=== PATIENT | female | born 1990 | race Caucasian/White ===

== ENCOUNTER 2017-03-24 21:09 | Emergency (ER) | payer MEDICAID, OTHER ==
[2017-03-24 22:39] LABS: Hematocrit 42.3 % (37.0-47.0); Hemoglobin 13.9 gm/dL (12.5-16.0); Mean Cell Volume 87.2 fl (78-100); Mean Corpuscular Hemoglobin 28.7 pg (27-31); Mean Corpuscular Hgb Conc 32.9 g/dl (32-36); Platelet Count 361 K/mm3 (150-450); Red Blood Count 4.85 M/mm3 (4.2-5.4); Red Cell Distribution Width 13.3 % (11.5-14.0); White Blood Count 11.3 K/mm3 (4.0-10.5)
[2017-03-24 22:49] LABS: Total Cells Counted 100
[2017-03-24 22:52] LABS: Urine Bilirubin Negative (NEGATIVE); Urine Blood Negative /ul (NEGATIVE); Urine Ketone Large mg/dL (NEGATIVE); Urine Nitrite Negative (NEGATIVE); Urine Protein Negative (NEGATIVE); Urine Specific Gravity 1.025 SP.GR. (1.005-1.010); Urine Urobilinogen Normal (NORMAL); Urine pH 5.5 pH (5.0-7.0)
[2017-03-24 22:58] LABS: Albumin * 3.8 gm/dl (3.4-5.0); Anion Gap 24.7 mmol/L (6.8-13.8); Ca. Corrected For Albumin 8.7 mg/dL (8.4-10.2); Calcium * 8.9 mg/dL (7.9-10.9); Carbon Dioxide 16.6 mmol/L (24-32.6); Potassium 4.3 mmol/L (3.4-4.6); Total Protein 7.5 gm/dL (6.2-8.2)
[2017-03-24 23:04] LABS: Lymphocyte 27 % (20-51); Monocyte 6 % (0-9); Neutrophil 67 % (42-75); Neutrophil # 7.6 K/mm3 (1.3-6.0)
[2017-03-24 23:05] LABS: Microcytosis 1+; Platelet Estimate Normal (NORMAL)
[2017-03-24 23:22] LABS: Urine Appearance Clear; Urine Color Pale Yellow; Urine RBC None Seen /hpf (0-5); Urine WBC None Seen /hpf (0-5)
[2017-03-24 23:23] LABS: Urine Bacteria TRACE; Urine Yeast TRACE
--- NOTE | 2017-03-24 23:24 | ERNOTE ---
Abdominal HPI - Narrative Date of Service: 03/24/17 - General Chief Complaint: Abdominal Pain Time Seen by Provider: 03/24/17 23:21 Source: patient Exam Limitations: no limitations - Immun/Allergies/Home Medications Immunizatons: IMMUNIZATION HX Immunizations Up to Date Yes History of Influenza Vaccine Yes Hx Pneumococcal Vaccination No Allergies/Adverse Reactions: Allergies amoxicillin trihydrate [From Augmentin] Allergy (Verified 03/20/16 16:58) Hives Penicillins Allergy (Verified 03/20/16 16:58) Hives potassium clavula *RETIRED-06/08/13 [From Augmentin] Allergy (Verified 03/20/16 16:58) Hives Home Medications: HOME MEDICATIONS Insulin Pump Cartridge [T:Flex] 1 each SQ DAILY 03/24/17 [Last Taken Unknown] Lisinopril [Zestril] 5 mg PO DAILY 03/24/17 [Last Taken Unknown] - History of Present Illness Narrative: HERE FOR C/O OF ABD DISCOMFORT DOWN INTO RIGHT GROIN. NO PERIOD. ON ROQUE. STARTED EARLIER TODAY. SOME NAUSEA , NO VOMITING, DIARRHEA X 3 = WATERY. NO FEVER. HER BGMS HAVE BEEN JUMPING AROUND. SHE HAS HAD DECREASED APPETITE. SHE HAS INSULIN PUMP AND USES SLIDING SCALE HER PUMP IS CURRENTLY ON A BASAL RATE. 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 NO SUSPICIOUS FOODS LATELY. SHE ALSO GIVES AN ADDITIONAL COMPLAINT OF MID STERANL CHEST PAIN WORSE WITH PALPATION. Review of Systems - Review of Systems Constitutional: Present: See HPI, recent illness EYE: Present: no symptoms reported ENT: Present: no symptoms reported Respiratory: Present: no symptoms reported Cardiology: Present: See HPI, chest pain Gastrointestinal/Abdominal: Present: nausea, diarrhea, abdominal pain Genitourinary: Present: no symptoms reported Musculoskeletal: Present: no symptoms reported Skin: Present: no symptoms reported Neurological: Present: no symptoms reported Endocrine: Present: See HPI Hematologic/Lymphatic: Present: no symptoms reported Psych: Present: no symptoms reported - Patient's Past Medical History Patient History - Medical: Diabetes Type 1 Patient History - Cardiac/Respiratory: No pertinent hx Patient History - Cancer: No Hx of Cancer Patient History - Surgical Procedures: , Other Patient History - Other: None - Family History Father Family History - Medical: Diabetes Type 1 - Social History Living Situations: home Abuse History: No History of abuse Psych History: No pertinent hx Smoking Status: Never smoker Alcohol Use: none Drug Use: none - Immunizations Immunizations Up to Date: Yes Hx Pneumococcal Vaccination: No History of Influenza Vaccine: Yes Physical Exam - Physical Exam General Appearance: Present: wd/wn, alert, no apparent distress Respiratory: Present: no respiratory distress, normal breath sounds, no accessory muscle use, lungs clear, chest tenderness - SHE HAS MID STERNAL CHEST DISCOMFORT WITH MINIMAL PRESSURE. Cardiovascular/Chest: Present: regular rate, rhythm, no murmur, normal peripheral pulses Peripheral Pulses: N=norm/S=strong/W=weak/B=bound/A=absent: Dorsalis-pedis (R): Normal, Dorsalis-pedis (L): Normal Gastrointestinal/Abdominal: Present: normal bowel sounds, nondistended - OBESE , soft, no organomegaly, tenderness - MILD RIGHT GROIN /RLQ TENDERNESS WITH NO GUARDING OR REBOUND. Back Exam: Present: normal inspection, normal range of motion, no CVA tenderness , no vertebral tenderness Extremity Exam: Present: normal inspection Neurological Exam: Present: alert, oriented Skin Exam: Present: normal color, warm/dry ED Progress - Results and Orders Patient's Lab Results:: I have reviewed the patient's lab results. Results and Orders: WBC = 11.3 AND GLUC = 424 WITH NL LYTES AND BUN/CREAT. LFT'S = NL. UA = NL EXCEPT FOR 4+ GLUC. - Vital Signs Patient's Vital Signs:: I have reviewed the patient's vital signs. Vital Signs: Vital Signs 03/24/17 03/24/17 03/24/17 21:15 21:52 22:23 Temperature 37.2 C 36.9 C Pulse Rate 102 H 100 98 Respiratory 16 16 14 Rate Blood Pressure 136/79 134/82 132/76 O2 Sat by Pulse 97 99 97 Oximetry 03/24/17 22:47 Temperature 36.9 C Pulse Rate 101 H Respiratory 16 Rate Blood Pressure 132/74 O2 Sat by Pulse 100 Oximetry - X-Ray X-Ray #1 X-Ray: abdomen Interpretation: Interp. by ut - WNL - CT/Ultrasound CT/Ultrasound Narrative: CT ABD /PELVIS = NO ABNORMALITY NOTED. - Progress/Reassessment Chief Complaint: Abdominal Pain Departure - Departure Clinical Impression: Right groin pain, Hyperglycemia Disposition: Home Follow Up Needed Condition: Good Instructions: Diarrhea, Adult, [id number] Additional Instructions: CLEAR LIQUID DIET FOR 1-2 DAYS UNTIL NO MORE DIARRHEA AND THEN GRADUALLY RESUME REGULAR FOOD LEAVING FATTY FOODS AND MILK PRODUCTS LAST TO ADD BACK. TYLENOL OR IBUPROFEN FOR RIGHT GROIN /ABDOMEN PAINS. RECHECK WITH YOUR FAMILY DOCTOR OR RETURN IF WORSE OR NOT IMPROVING OVER THE NEXT 2-[address] SCAN WAS NORMAL. WATCH YOUR BLOOD GLUCOSE CLOSELY AND USE YOUR SLIDING SCALE WHEN THEY ARE ELEVATED.
[2017-03-24] MEDS ORDERED: INSULIN REGULAR, HUMAN 100 UNITS/ML VIAL SC ONE (23:32)
--- OUTSIDE RECORDS SUMMARY | 2017-03-24 23:42 | XMS REPORT | Continuity of Care Document ---
:1990 Author Organization [employer] [place] [address] Care Team Providers Name Role Phone Ananth Iyer Primary Care Provider [phone] Source Comments This disclosure is being made pursuant to the [employer] program and maynot contain all information available regarding this patient.[employer] Active Allergies and Adverse Reactions Allergen Noted Date Severity Reactions Comments Amoxicillin-Pot 09/01/2014 High Hives Clavulanate Metoclopramide Hcl 02/25/2017 High Shortness Of Breath Legs tingling & twitching Penicillins 09/01/2014 High Hives Current Medications Be aware that medications may not be up to date as of this document. Alwaysverify current medications with the patient. Prescription Sig. Disp. Refills Start Date End Date Status Glucose Blood DX 250.03 One 300 each 3 10/25/2014 Active (BLOOD GLUCOSE Touch Verio IQ TEST STRIPS) STRP testing 4-7 times per day Insulin Use to administer 200 each 6 10/25/2014 Active Syringe-Needle insulin 4-6 times U-100 (INSULIN a day. SYRINGE .5CC/30GX5/16") 30G X 5/16" 0.5 ML MISC insulin glargine Inject 26 Units Active (LANTUS) 100 into the skin UNIT/ML injection daily. While off - vial her pump glucagon HCl, Inject 1 mg into 1 kit 1 10/02/2016 Active rDNA, (GLUCAGEN) 1 the skin daily as MG injection needed. for symptomatic hypoglycemia. May repeat x 1 after 20 min if needed. insulin lispro Per insulin pump 30 mL 5 10/02/2016 Active (HUMALOG) 100 uses tdd of 70 UNIT/ML injection units per day dx - vial e10.65 acetone, urine, As directed prn 25 each 6 10/02/2016 Active test (KETOSTIX) strip lisinopril Take 1 tablet by 30 tablet 5 02/25/2017 Active (PRINIVIL,ZESTRIL) mouth daily. 5 MG tablet lisinopril Take 1 tablet by 30 tablet 5 10/03/2016 Discontinued (PRINIVIL,ZESTRIL) mouth daily. 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, with 02/25/2017 long-term current use of insulin (HCC) Type I diabetes mellitus, uncontrolled ([facility]) 03/16/2008 Overview: Overview: MENG CHAVEZ MD Type I diabetes mellitus (HCC) 03/06/2005 Overview: Overview: MENG CHAVEZ MD Overview: MENG CHAVEZ MD Resolved Problems Problem Noted Date Resolved Date Swelling, mass, or lump in head and neck 03/09/2009 12/01/2015 Overview: Overview: M MISCELLANEOUS Cellulitis and abscess of leg 07/10/2007 12/01/2015 Overview: Overview: THEODORE COBOS DO Most Recent Encounters Date Type Specialty Providers Description 03/12/2017 Orders Only Endocrinology Maeve Samriento MD Uncontrolled type 1 diabetes mellitus without complication (HCC); Type 1 diabetes mellitus without complication (HCC) 02/25/2017 Office Visit Endocrinology Maeve Sarmiento MD 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, with long-term current use of insulin (HCC) (Primary Dx) 02/20/2017 Abstract Endocrinology Amara Burrell LPN Immunizations Name Dates Previously Given Next Due INFLUENZA, INACTIVATED, QUADRIVALENT, 3 YEARS AND 10/02/2016,09/01/2015 older, single dose syringe/vial Influenza Split 09/01/2014 Pneumococcal Polysaccharide-23 12/01/2015 Social History Tobacco Use Types Packs/Day Years Used Date Never Smoker Smokeless Tobacco: Never Used Tobacco Cessation:Counseling Given: No Comments: Alcohol Use Drinks/Week oz/Week Comments No Last Filed Vital Signs Vital Sign Reading Time Taken Blood Pressure 128/83 02/25/2017 10:19 AM CDT Pulse 95 02/25/2017 10:19 AM CDT Temperature 36.9 C (98.5 F) 03/22/2009 3:44 PM CDT Respiratory Rate 16 05/13/2015 10:02 AM CDT Height 1.6 m (5' 3") 02/25/2017 10:19 AM CDT Weight 72.439 kg (159 lb 11.2 oz) 02/25/2017 10:19 AM CDT Body Mass Index 28.3 02/25/2017 10:19 AM CDT Oxygen Saturation - - Plan of Care Patient Goal Type Goal Result Component HEMOGLOBIN A1C below 7.0 Date Type Specialty Providers Description 05/27/2017 Appointment Endocrinology Maeve Sarmiento MD [facility] [place] [address] [phone] (Fax) Health Maintenance Due Date Last Done Comments Lab-Lipids 1992 HPV Vaccine (9-26YO) (1 of 3 2003 - Female 3 Dose Series) Chlamydia Screening 2008 Tetanus/Pertussis (1 - Tdap) 2011 Pap Smear 2013 Eye (Ophthalmology) Exam 11/02/2016 11/02/2015, Additional history exists 11/02/2015, 11/02/2015 LAB-HgA1C 05/21/2017 02/19/2017, Additional history exists 02/19/2017, 09/25/2016 Lab-Urine Microalbumin 09/25/2017 09/25/2016, Additional history exists 05/14/2016, 09/25/2013 Foot Exam 02/25/2018 02/25/2017 Pneumococcal Medium Risk Completed 12/01/2015 19-64 yo Influenza Immunization Completed 10/02/2016, 09/01/2015, 09/01/2014 Results from Last 3 Months Basic metabolic panel (02/19/2017)Hemoglobin A1c (02/19/2017)Only the most recent of2 resultswithin the time period is included. Component Value Range Hemoglobin A1C 10.9 % Estimated Avg Glucose 266 Narrative See scanned results 02-19-17 Potassium (02/19/2017) Component Value Range Potassium, Blood 3.6 mmol/L Creatinine, Blood (02/19/2017) Component Value Range Creatinine, Serum 0.5 mg/dL Calcium (02/19/2017) Component Value Range Calcium 9.1 mg/dL Glomerular Filtration Rate Estimate (02/19/2017) Component Value Range eGFR, non- 135
[2017-03-25] MEDS ORDERED: INSULIN REGULAR, HUMAN 100 UNITS/ML VIAL ONE (00:02)
[2017-03-25 01:15] VITALS: BP 114/79
[2017-03-25] MEDS ORDERED: DIATRIZOATE MEGLU/DIATRIZO SOD 30 ML BTL PO ONE (01:35)
[2017-03-25] MEDS ORDERED: DIATRIZOATE MEGLU/DIATRIZO SOD 30 ML BTL ONE (01:36)
== END 2017-03-25 03:15 | disposition home or self-care (01) ==
LOC: ER 21:09
DX: R10.31 Right lower quadrant pain (principal); E10.65 Type 1 diabetes mellitus with hyperglycemia; Z96.41 Presence of insulin pump (external) (internal)